=== PATIENT | female | born 1970 | race American Indian/Alaskan Native ===

== ENCOUNTER 2019-01-30 12:44 | Inpatient (IN) | payer MEDICAID ==
[2019-01-30 13:04] VITALS: BMI 24.2
[2019-01-30 14:09] LABS: BASO # 0.04 K/mm3 (0.0-2.0); BASO % 0.6 % (0.0-3.0); EOS # 0.1 (0.0-0.7); HEMOGLOBIN 13.6 g/dL (12.0-16.0); LYMPH # 1.8 (1.2-3.4); LYMPH % 26.2 % (22.0-35.0); MEAN CORPUSCULAR HEMOGLOBIN 26.5 pg (25.0-35.0); MEAN CORPUSCULAR HGB CONC 33.1 g/dl (31.0-37.0); MEAN PLATELET VOLUME 10.5 fl (7.0-11.0); MONO # 0.4 (0.1-0.6); MONO % 6.6 % (1.0-6.0); RBC 5.14 10^6/uL (3.5-6.1); RED CELL DISTRIBUTION WIDTH 15.5 % (11.5-14.5); WHITE BLOOD COUNT 6.7 10^3/uL (4.5-11.0)
[2019-01-30 14:15] LABS: URINE BILIRUBIN NEGATIVE (NEGATIVE); URINE BLOOD NEGATIVE (NEGATIVE); URINE GLUCOSE (UA) NEGATIVE (NEGATIVE); URINE LEUKOCYTE ESTERASE TRACE Leu/uL (NEGATIVE); URINE PROTEIN NEGATIVE mg/dL (<30 mg/dL); URINE UROBILINOGEN 0.2 E.U./dL (<1 E.U./dL)
[2019-01-30 14:18] LABS: ALB/GLOB RATIO 1.3 (1.1-1.8); ALBUMIN 4.5 g/dL (3.0-4.8); ALT/SGPT 26 U/L (7-56); AST/SGOT 28 U/L (14-36); BLOOD UREA NITROGEN 7 mg/dL (7-21); CALCIUM 9.6 mg/dL (8.4-10.5); GFR NON-AFRICAN AMERICAN > 60
[2019-01-30 14:19] LABS: ACETAMINOPHEN < 10.0 ug/ml (10.0-20.0); SALICYLATE < 1 mg/dL (2.0-20.0)
[2019-01-30 14:28] LABS: URINE APPEARANCE CLEAR (CLEAR); URINE COLOR YELLOW (YELLOW)
[2019-01-30 14:31] LABS: OPIATES, UR NEGATIVE (NEGATIVE)
--- NOTE | 2019-01-30 14:32 | ED PDOC ---
Arrival/HPI - General Historian: Patient - History of Present Illness Narrative History of Present Illness (Text): 01/30/19 14:34 48yr old female with hx of depression and drug use presents today with worsening depression. pt states she used cocaine yesterday. denies fever/chills. no cp or sob. pt states she hasnt eaten since yesterday and is having pain in the stomach because she is hungry. pt denies alcohol use. no headaches/ dizziness or weakness. no trauma or injury. no n/v/d/c. no urinary symptoms. pt states she is supposed to be on medications for depression but hasnt followed up with her doctor. pt states she is extremely depressed today because she started using d rugs again. <Lakisha Mccoy - Last Filed: 01/30/19 15:51> <Jose Williamson - Last Filed: 01/30/19 16:28> - General Chief Complaint: Psychiatric Evaluation Time Seen by Provider: 01/30/19 12:50 Past Medical History - Provider Review Nursing Documentation Reviewed: Yes - Travel History Have you recently traveled outside [place] w/in the past 3 mons?: No - Infectious Disease Hx of Infectious Diseases: None - Psychiatric Hx Depression: Yes Hx Substance Use: Yes Other/Comment: substance abuse - Anesthesia Hx Anesthesia: No <Lakisha Mccoy - Last Filed: 01/30/19 15:51> Family/Social History - Physician Review Nursing Documentation Reviewed: Yes Family/Social History: Unknown Family HX Smoking Status: Light Smoker < 10 Cigarettes Daily Hx Alcohol Use: Yes Frequency of alcohol use: Socially Hx Substance Use: Yes Substance used: heroine, cocaine, was on methadone <Lakisha Mccoy - Last Filed: 01/30/19 15:51> Allergies/Home Meds <Lakisha Mccoy - Last Filed: 01/30/19 15:51> <Jose Williamson - Last Filed: 01/30/19 16:28> Allergies/Adverse Reactions: Allergies No Known Allergies Allergy (Verified 01/30/19 13:04) Home Medications: Home Meds Medication Instructions Recorded Confirmed No Known Home Med 01/30/19 01/30/19 Review of Systems - Review of Systems Constitutional: absent: Fatigue, Fevers ENT: absent: Sore Throat, Sinus Congestion Respiratory: absent: SOB, Cough Cardiovascular: absent: Chest Pain, Palpitations Gastrointestinal: Abdominal Pain. absent: Constipation, Diarrhea, Nausea, Vomiting Genitourinary Female: absent: Dysuria, Frequency, Hematuria Musculoskeletal: absent: Arthralgias, Back Pain, Neck Pain Skin: absent: Rash, Pruritis Neurological: absent: Headache, Dizziness Psychiatric: Depression. absent: Anxiety, Suicidal Ideation <Lakisha Mccoy T - Last Filed: 01/30/19 15:51> Physical Exam Vital Signs Reviewed: Yes Vital Signs Temp Pulse Resp BP Pulse Ox 01/30/19 14:03 97 H 18 118/78 100 01/30/19 13:09 98.5 F 110 H 18 121/85 100 Temperature: Afebrile Blood Pressure: Normal Pulse: Tachycardic Respiratory Rate: Normal Appearance: Positive for: Well-Appearing, Non-Toxic, Comfortable Pain Distress: None Mental Status: Positive for: Alert and Oriented X 3 - Systems Exam Head: Present: Atraumatic Mouth: Present: Moist Mucous Membranes Neck: Present: Normal Range of Motion Respiratory/Chest: Present: Clear to Auscultation, Good Air Exchange. No: Respiratory Distress, Accessory Muscle Use Cardiovascular: Present: Regular Rate and Rhythm, Normal S1, S2. No: Murmurs Abdomen: No: Tenderness, Distention, Peritoneal Signs, Rebound, Guarding Back: Present: Normal Inspection Upper Extremity: Present: Normal ROM Lower Extremity: Present: Normal ROM Neurological: Present: GCS=15, Speech Normal Skin: Present: Warm, Dry, Normal Color. No: Rashes Psychiatric: Present: Alert, Oriented x 3 <Lakisha Mccoy T - Last Filed: 01/30/19 15:51> Vital Signs Temp Pulse Resp BP Pulse Ox 01/30/19 15:52 98.2 F 86 18 116/71 100 01/30/19 14:03 97 H 18 118/78 100 01/30/19 13:09 98.5 F 110 H 18 121/85 100 <Jose Williamson - Last Filed: 01/30/19 16:28> Medical Decision Making ED Course and Treatment: 01/30/19 14:36 Patient is nontoxic well-appearing in no distress vital signs are stable. CBC WNL CMP WNL lipase; wnl Tylenol WNL Salicylate WNL Alcohol level WNL Urine drug screen + cocaine, + marijuana UA; trace leukocytes cxr: wnl ekg: Sinus tachycardia at 121 bpm, no st elevations pt is medically cleared for PES evaluation Patient was seen and evaluated by PES screener: sienna pt reassessment; vitals stable. pt signed voluntarily for psychiatric admission Impression; depression Admit to behavioral health floor - Lab Interpretations Lab Results: Total Bilirubin 0.7 mg/dL (0.2-1.3) 01/30/19 13:05 AST 28 U/L (14-36) 01/30/19 13:05 ALT 26 U/L (7-56) 01/30/19 13:05 Alkaline Phosphatase 76 U/L (38-126) 01/30/19 13:05 Total Protein 8.0 g/dL (5.8-8.3) 01/30/19 13:05 Albumin 4.5 g/dL (3.0-4.8) 01/30/19 13:05 Globulin 3.5 gm/dL 01/30/19 13:05 Albumin/Globulin Ratio 1.3 (1.1-1.8) 01/30/19 13:05 <Lakisha Mccoy T - Last Filed: 01/30/19 15:51> - Lab Interpretations Lab Results: Total Bilirubin 0.7 mg/dL (0.2-1.3) 01/30/19 13:05 AST 28 U/L (14-36) 01/30/19 13:05 ALT 26 U/L (7-56) 01/30/19 13:05 Alkaline Phosphatase 76 U/L (38-126) 01/30/19 13:05 Total Protein 8.0 g/dL (5.8-8.3) 01/30/19 13:05 Albumin 4.5 g/dL (3.0-4.8) 01/30/19 13:05 Globulin 3.5 gm/dL 01/30/19 13:05 Albumin/Globulin Ratio 1.3 (1.1-1.8) 01/30/19 13:05 Lipase 129 U/L (23-300) 01/30/19 13:05 Urine Color Yellow (YELLOW) 01/30/19 14:05 Urine Appearance Clear (CLEAR) 01/30/19 14:05 Urine pH 7.0 (4.7-8.0) 01/30/19 14:05 Ur Specific [place] 1.020 (1.005-1.035) 01/30/19 14:05 Urine Protein Negative mg/dL (<30 mg/dL) 01/30/19 14:05 Urine Glucose (UA) Negative mg/dL (NEGATIVE) 01/30/19 14:05 Urine Ketones Negative mg/dL (NEGATIVE) 01/30/19 14:05 Urine Blood Negative (NEGATIVE) 01/30/19 14:05 Urine Nitrate Negative (NEGATIVE) 01/30/19 14:05 Urine Bilirubin Negative (NEGATIVE) 01/30/19 14:05 Urine Urobilinogen 0.2 E.U./dL (<1 E.U./dL) 01/30/19 14:05 Ur Leukocyte Esterase Trace [place]/uL (NEGATIVE) H 01/30/19 14:05 Urine RBC 0 - 2 /hpf (0-2) 01/30/19 14:05 Urine WBC 2 - 5 /hpf (0-6) 01/30/19 14:05 Ur Epithelial Cells 6 - 8 /hpf (0-5) H 01/30/19 14:05 Amorphous Sediment Few /hpf (NONE) 01/30/19 14:05 Urine Bacteria Small /hpf (NONE) 01/30/19 14:05 - RAD Interpretation Radiology Orders: 01/30/19 14:34 CHEST PORTABLE [RAD] Stat - Medication Orders Current Medication Orders: Discontinued Medications Cephalexin Monohydrate (Keflex) 500 mg PO STAT STA; Protocol Stop: 01/30/19 15:54 Lorazepam (Ativan) 1 mg PO ONCE ONE; Protocol Stop: 01/30/19 15:15 Last Admin: 01/30/19 15:36 Dose: 1 mg <Jose Williamson - Last Filed: 01/30/19 16:28> - PA / SENIOR ANALYST PROGRAMMER / Resident Statement / has reviewed & agrees with the documentation as recorded. <Jose Williamson - Last Filed: 01/30/19 16:28> Disposition/Present on Arrival - Present on Arrival Any Indicators Present on Arrival: No History of DVT/PE: No History of Uncontrolled Diabetes: No Urinary Catheter: No History of Decub. Ulcer: No History Surgical Site Infection Following: None - Disposition Have Diagnosis and Disposition been Completed?: Yes Disposition Time: 15:52 Patient Plan: Admission <Lakisha Mccoy - Last Filed: 01/30/19 15:51> <Jose Williamson - Last Filed: 01/30/19 16:28> - Disposition Diagnosis: Depression, Drug use Disposition: HOSPITALIZED Condition: FAIR
[2019-01-30 14:34] LABS: BARBITURATES, UR NEGATIVE (NEGATIVE); BENZODIAZEPINES, UR NEGATIVE (NEGATIVE); PHENCYCLIDINE, UR NEGATIVE (NEGATIVE); URINE AMORPHOUS SEDIMENT FEW /hpf; URINE BACTERIA SMALL /hpf; URINE RBC 0 - 2 /hpf (0-2)
--- NOTE | 2019-01-30 14:53 | RAD ---
Date of service: 01/30/2019 HISTORY: Pes eval COMPARISON: No prior. FINDINGS: LUNGS: No active pulmonary disease. PLEURA: No significant pleural effusion identified, no pneumothorax apparent. CARDIOVASCULAR: No aortic atherosclerotic calcification present. Normal cardiac size. No pulmonary vascular congestion. OSSEOUS STRUCTURES: No significant abnormalities. VISUALIZED UPPER ABDOMEN: Normal. OTHER FINDINGS: None. IMPRESSION: No active disease.
--- NOTE | 2019-01-30 15:25 | CARD ---
APPROVED REPORT Date of service: 01/30/2019 EKG Measurement Heart [id number] <Conclusion> Sinus tachycardia Otherwise normal ECG
[2019-01-30] MEDS ORDERED: Alum-Mag Hydrox-Simethicone Susp (30 mL) PO PRN (17:54)
[2019-01-30] MEDS ORDERED: Magnesium Hydroxide Susp 30 ml UD PO PRN (17:54)
--- NOTE | 2019-01-30 18:22 | PCM.BM ---
<Socorro Temple - Last Filed: 01/30/19 18:19> Treatment Plan Problems - Problems identified on initial assessmt INEFFECTIVE INDV COPING Date Initiated: 01/30/19 Time Initiated: 18:00 Assessment reference: NA Status: Active Priority: 1 HOPELESS/HELPLESS Date Initiated: 01/30/19 Time Initiated: 18:00 Assessment reference: NA Priority: 2 ALTERED SLEEP PATTERN Date Initiated: 01/30/19 Time Initiated: 18:00 Assessment reference: NA Status: Active Priority: 3 FEELING WORTHLESSNESS Date Initiated: 01/30/19 Time Initiated: 18:00 Assessment reference: NA Status: Active Priority: 4 HIGH RISK :SUICIDE Date Initiated: 01/30/19 Time Initiated: 18:00 Assessment reference: NA Status: Active Priority: 5 Treatment assets and liabiliti Patient Assests: insightful, ADL independent, physically healthy, cognitively intact, strong nancy Patient Liabilities: financial problems, poor support system, substance abuse - Milieu Protocol Maintain good personal hygiene: daily Encourage regular showers, daily Remind patient to perform daily oral care, daily Assist patient to perform ADL's Maintain personal safety: every shift Educate patient to report safety concerns to staff, every shift Monitor environment for contraband/sharps Medication safety: Monitor for expected outcome, potential side effects: every shift, Assess barriers to learning: every shift, Assess readiness for medication education: every shift Discharge/Continuing Care - Education Needs Education Needs: Patient Medication, Patient Diagnosis/Disease Process, Patient Coping Skills, Patient Anger Management skills, Patient Community resources, Patient Activities of Daily Living, Patient Pain, Patient Nutrition, Patient Health Practices/Safety, Patient Personal Hygiene/Grooming, Patient Aftercare Safety Plan - Discharge Discharge Criteria: Tolerates medication w/o severe side effects, Free of Suicidal thoughts, Free of agitation, Normal sleep pattern, Ability to care for self, No longer exhibiting s/s of withdrawal, Reduction of target symptoms Discharge to:: Home <Missy Lora - Last Filed: 01/31/19 13:39> - Diagnosis (1) MDD (major depressive disorder) Status: Acute Interventions: 01/31/19 13:40 Psychoeducation Psychopharmacology/adjustment of medications as needed/ monitoring possible side effects Evaluate pt on daily basis Compliance with medications and follow up appointments Suicide and homicide risk assessment and prevention Relapse prevention Reduction of symptoms Improve functional status Family involvement As outpatient: cognitive behavioral therapy (2) Polysubstance dependence including opioid type drug, episodic abuse Status: Acute Interventions: 01/31/19 13:40 Monitoring withdrawal symptoms Medical detoxification Pharmacotherapy for alcohol/benzos/opioid dependence Maintaining sobriety Relapse prevention Possible rehabilitation Motivational interviewing 12-step programs: AA meetings <Tova Coronel - Last Filed: 02/01/19 16:00> Family Contact Family involvement: Famliy/SO not involved <Maegan Murphy - Last Filed: 02/02/19 15:44>
[2019-01-31 07:05] VITALS: O2SAT 99
[2019-01-31 08:03] LABS: HDL CHOLESTEROL 76 mg/dL (29-60)
[2019-01-31 08:15] LABS: LDL CHOLESTEROL 114 mg/dL (0-129)
[2019-01-31 08:19] LABS: FREE T4 0.82 ng/dL (0.78-2.19)
--- NOTE | 2019-01-31 13:39 | PCM.PSYCH ---
Initial Psychiatric Evaluation - Initial Psychiatric Evaluation Type of Admission: Voluntary Legal Status: Capacity Chief Complaint (in patient's own words): "I was thinking to cut my wrists, then I called 911..." Patient's Reaction to Hospitalization: pt was admitted for evaluation and stabilization of depressive symptoms, suicidal ideation with the plan to cut her wrists, paranoid ideation. History of Present Illness and Precipitating Events: shortly pt is a 48yr old female with self-reported history of depression, no previous psychiatric admissions, one detox admission at [facility] about a year ago, patient called 911 because of worsening of depressive symptoms, possible suicidal ideation with a plan to cut herself with a razor, patient also experienced psychotic symptoms, patient was feeling paranoid that people are monitoring her and talking badly about her. Patient has long history of opioid and stimulant use disorder, currently under care or of methadone clinic, completed detox from methadone, patient requires further evaluation and stabilization and possible medication management. Patient was seen and examined today at the treatment team meeting, patient presented with poor personal hygiene, seems to be careless about her appearance, tearful during the interview, acceptable ADLs. Patient reported that she was using drugs for about 26 years, patient reported that she had 10-year of sobriety since 2008 until recent weight, patient reported that she relapsed on drugs after her mother got sick, patient reported that her mother last July, patient reported that she relapsed on opioids, cocaine, patient reported that she could spend $800 for drugs, most recently patient spent $5000 for past 2 weeks for cocaine, patient reported that she decided to stay sober, patient was substituting opioids with methadone which was tapered down to 10 mg, patient reported that she relapsed on cocaine and later on she was drinking alcohol in order to help herself with withdrawal symptoms, later on patient would start smoking marijuana in order to help herself with alcohol. Patient reported no patient feels more or less, will be but "tired". No physical symptoms of withdrawals, patient's vital signs are within normal limits, patient able to eat. Patient reported that she smokes cigarettes, about 1 pack a day, counseling provided, nicotine patch offered. Patient reported for past 2 weeks was feeling more depressed, hopeless, helpless, guilty, patient reported that she had suicidal ideation with a plan to cut herself with a razor, patient said that she was opening the drawer where she has razors, "I was looking at the razors, I was thinking to cut myself, but I decided to call 911 and look for help." Patient reported that she had difficulty to fall asleep to stay asleep, difficulty to stay focused and concentrate, patient reported that she was not able to function. Patient reported that she was feeling paranoid lately, patient reported that she feels that her neighbors are watching her and talking badly about her. Patient denied history of being abused. Past psychiatric history: Patient reported one suicidal plan at the age of 27 patient reported that she overdose on bleach, patient reported that she was not admitted, patient reported that she was under the influence of alcohol but then and there is not for suicidal attempt was relationship problems with her boyfriend. Pt. attends methadone clinic [facility] in [place] for the past 4 months. 03/18/18 [facility] detox. pt was dx with: polysubstance abuse and dependence\\ Major Depressive d/o -recurrent - severe, w/o psychosis r/o personality d/o r/o bipolar type II pt was prescribed following meds: Escitalopram [Lexapro] 10 mg PO DAILY #30 tab Gabapentin [Neurontin] 300 mg PO TID #90 cap QUEtiapine [SEROquel] 50 mg PO HS #30 tab traZODone [Desyrel] 50 mg PO HS PRN #30 tab h/o indicated that DYFS was involved last time. pt has 18yo, 13yo and 9yo kids, now they are under custody of their father. Medical history: Patient denied any medical history, reported being healthy. Family history: Patient reported that her great uncle had history of being hospitalized into the psychiatric inpatient unit but patient was not sure what she was diagnosed with. Patient denied family history of suicidal attempts. 01/30/19 13:05 01/30/19 13:05 Lab Results 01/31/19 07:30: Triglycerides 94, Cholesterol 244 H, LDL Cholesterol Direct 114, HDL Cholesterol 76 H 01/31/19 07:30: Free T4 0.82, TSH 3rd Generation 0.94 01/30/19 14:05: Urine Opiates Screen Negative, Urine Methadone Screen Negative, Ur Barbiturates Screen Negative, Ur Phencyclidine Scrn Negative, Ur Amphetamines Screen Negative, U Benzodiazepines Scrn Negative, U Oth Cocaine Metabols Positive H, U Cannabinoids Screen Positive H 01/30/19 14:05: Urine Color Yellow, Urine Appearance Clear, Urine pH 7.0, Ur Specific [place] 1.020, Urine Protein Negative, Urine Glucose (UA) Negative, Urine Ketones Negative, Urine Blood Negative, Urine Nitrate Negative, Urine Bilirubin Negative, Urine Urobilinogen 0.2, Ur Leukocyte Esterase Trace H, Urine RBC 0 - 2, Urine WBC 2 - 5, Ur Epithelial Cells 6 - 8 H, Amorphous Sediment Few, Urine Bacteria Small 01/30/19 13:05: Lipase 129 01/30/19 13:05: Alcohol, Quantitative < 10 01/30/19 13:05: Salicylates < 1 L, Acetaminophen < 10.0 L 01/30/19 13:05: Sodium 141, Potassium 3.5 L, Chloride 105, Carbon Dioxide 28, Anion Gap 11, BUN 7, Creatinine 0.9, Est GFR ( Amer) > 60, Est GFR (Non- Af Amer) > 60, Random Glucose 95, Calcium 9.6, Total Bilirubin 0.7, AST 28, ALT 26, Alkaline Phosphatase 76, Total Protein 8.0, Albumin 4.5, Globulin 3.5, Albumin/Globulin Ratio 1.3 01/30/19 13:05: WBC 6.7, RBC 5.14, Hgb 13.6, Hct 41.1, MCV 80.0, MCH 26.5, MCHC 33.1, RDW 15.5 H, Plt Count 354, MPV 10.5, Neut % (Auto) 65.6, Lymph % (Auto) 26.2, [place] % (Auto) 6.6 H, Eos % (Auto) 1.0 L, Baso % (Auto) 0.6, Lymph # (Auto) 1.8, [place] # (Auto) 0.4, Eos # (Auto) 0.1, Baso # (Auto) 0.04, Absolute Neuts (auto) 4.40 Vital Signs Temp Pulse Resp BP Pulse Ox 01/31/19 07:00 98.1 F 112 H 18 110/73 99 01/30/19 21:15 98.3 F 87 16 113/80 01/30/19 18:03 16 01/30/19 17:22 100 01/30/19 17:03 98.1 F 79 18 122/76 100 01/30/19 15:52 98.2 F 86 18 116/71 100 01/30/19 14:03 97 H 18 118/78 100 01/30/19 13:09 98.5 F 110 H 18 121/85 100 The patient failed the outpatient lower level of care: Yes Current Medications: Active Medications Generic Name Dose Route Start Last Admin Trade Name Freq PRN Reason Stop Dose Admin Acetaminophen 650 mg 01/30/19 17:54 Tylenol 325mg Tab PO Q4 PRN Pain, moderate (4-7) Al Hydrox/Mg Hydrox/Simethicone 30 ml 01/30/19 17:54 Maalox Plus 30 Ml PO DAILY PRN Upset Stomach Gabapentin 300 mg 01/30/19 18:00 01/30/19 18:37 Neurontin PO 300 mg TID LOGAN Administration Protocol Hydroxyzine Pamoate 50 mg 01/30/19 17:49 Vistaril PO Q8 PRN Anxiety Protocol Lorazepam 2 mg 01/30/19 17:50 01/30/19 21:10 Ativan PO 2 mg Q6H PRN Administration Anxiety Protocol Lorazepam 2 mg 01/30/19 17:51 Ativan IM Q6H PRN Anxiety Protocol Magnesium Hydroxide 30 ml 01/30/19 17:54 Milk Of Magnesia PO DAILY PRN Constipation Quetiapine Fumarate 50 mg 01/30/19 17:50 Seroquel PO BID PRN HALLUCINATION Protocol Trazodone HCl 50 mg 01/30/19 17:48 Desyrel PO HS PRN Sleep Ziprasidone 20 mg 01/30/19 17:52 Geodon Cap PO Q6H PRN Agitation Protocol Ziprasidone 20 mg 01/30/19 17:53 Geodon Inj IM Q6H PRN Agitation Protocol Present on Admission - Present on Admission Any Indicators Present on Admission: No Review of Systems - Review of Systems Systems not reviewed;Unavailable: Acuity of Condition - Constitutional Constitutional: As Per HPI - EENT Eyes: As Per HPI Ears: As Per HPI Nose/Mouth/Throat: As Per HPI - Breasts Breasts: As Per HPI - Cardiovascular Cardiovascular: As Per HPI - Respiratory Respiratory: As Per HPI - Gastrointestinal Gastrointestinal: As Per HPI - Genitourinary Genitourinary: As Per HPI - Reproductive: Female Reproductive:Female: As Per HPI - Menstruation Menstruation: As Per HPI - Musculoskeletal Musculoskeletal: As Per HPI - Integumentary Integumentary: As Per HPI - Neurological Neurological: As Per HPI - Psychiatric Psychiatric: As Per HPI - Endocrine Endocrine: As Per HPI - Hematologic/Lymphatic Hematologic: As Per HPI Past Patient History - Past Psychiatric History Previous Treatment History: Inpatient Prior Professional Help: see HPI Prior Psychiatric Treatment: see HPI At what hospital: see HPI Duration: see HPI Nature of Treatment: see HPI Explanation of prior treatment: see HPI - PSYCHIATRIC Hx Depression: Yes Hx Substance Use: Yes (cocaine) - Infectious Disease Hx of Infectious Diseases: None - CARDIAC Hx Cardiac Disorders: No Hx Hypertension: No - PULMONARY Hx Respiratory Disorders: No Hx Tuberculosis: No - NEUROLOGICAL Hx Neurological Disorder: No HX Cerebrovascular Accident: No Hx Seizures: No - HEENT Hx HEENT Problems: No - RENAL Hx Chronic Kidney Disease: No - ENDOCRINE/METABOLIC Hx Endocrine Disorders: No - HEMATOLOGICAL/ONCOLOGICAL Hx Blood Disorders: No Hx Cancer: No Hx Human Immunodeficiency Virus (HIV): No - INTEGUMENTARY Hx Dermatological Problems: No - MUSCULOSKELETAL/RHEUMATOLOGICAL Hx Musculoskeletal Disorders: No - GASTROINTESTINAL Hx Gastrointestinal Disorders: No - GENITOURINARY/GYNECOLOGICAL Hx Genitourinary Disorders: No Hx Sexually Transmitted Disorders: No - SURGICAL HISTORY Hx Surgeries: No - ANESTHESIA Hx Anesthesia: No - Medical/Surgical History Reviewed & confirmed: by az Meds Allergies/Adverse Reactions: Allergies Allergy/AdvReac Type Severity Reaction Status Date / Time No Known Allergies Allergy Verified 01/30/19 13:04 Mental Status Examination - Personal Presentation Personal Presentation: Looks stated age - Affect Affect: Flat - Motor Activity Motor Activity: Calm - Reliability in Providing Information Reliability in Providing Information: Fair - Speech Speech: Organized - Mood Mood: Depressed, Anxious - Formal Thought Process Formal Thought Process: Paranoia - Hallucinations/Delusions Delusions: Persecution - Obsessions/Compulsions Obsessions: None Compulsions: None - Cognitive Functions Orientation: Person, Place, Situation, Time Sensorium: Alert Attention/Concentration: Easily distracted Abstract Thinking: [place] Estimate of Intelligence: Average Judgement: Intact, as evidence by: Insight regarding need for hospitalization - Risk Risk: Self-mutilation, Diminished functioning - Strength & Assets Inventory Strength & Assets Inventory: Intelligence, Spiritual affiliations, Life experience, Cooperative - Limitations Limitations: Other (substance abuse, poor social support) Psychiatric Physical Exam - Physical Exam Reviewed and confirmed: Emergency Department Physical Exam Results - Vital Signs Recent Vital Signs: Last Vital Signs Temp 98.1 F 01/31/19 07:00 Pulse 112 H 01/31/19 07:00 Resp 18 01/31/19 07:00 BP 110/73 01/31/19 07:00 Pulse Ox 99 01/31/19 07:00 - Labs Result Diagrams: 01/30/19 13:05 01/30/19 13:05 Labs: Laboratory Results - last 24 hr 01/30/19 01/30/19 01/30/19 13:05 13:05 13:05 WBC 6.7 RBC 5.14 Hgb 13.6 Hct 41.1 MCV 80.0 MCH 26.5 MCHC 33.1 RDW 15.5 H Plt Count 354 MPV 10.5 Neut % (Auto) 65.6 Lymph % (Auto) 26.2 [place] % (Auto) 6.6 H Eos % (Auto) 1.0 L Baso % (Auto) 0.6 Lymph # (Auto) 1.8 [place] # (Auto) 0.4 Eos # (Auto) 0.1 Baso # (Auto) 0.04 Absolute Neuts (auto) 4.40 Sodium 141 Potassium 3.5 L Chloride 105 Carbon Dioxide 28 Anion Gap 11 BUN 7 Creatinine 0.9 Est GFR ( Amer) > 60 Est GFR (Non-Af Amer) > 60 Random Glucose 95 Calcium 9.6 Total Bilirubin 0.7 AST 28 ALT 26 Alkaline Phosphatase 76 Total Protein 8.0 Albumin 4.5 Globulin 3.5 Albumin/Globulin Ratio 1.3 Triglycerides Cholesterol LDL Cholesterol Direct HDL Cholesterol Lipase Free T4 TSH 3rd Generation Urine Color Urine Appearance Urine pH Ur Specific [place] Urine Protein Urine Glucose (UA) Urine Ketones Urine Blood Urine Nitrate Urine Bilirubin Urine Urobilinogen Ur Leukocyte Esterase Urine RBC Urine WBC Ur Epithelial Cells Amorphous Sediment Urine Bacteria Salicylates < 1 L Urine Opiates Screen Urine Methadone Screen Acetaminophen < 10.0 L Ur Barbiturates Screen Ur Phencyclidine Scrn Ur Amphetamines Screen U Benzodiazepines Scrn U Oth Cocaine Metabols U Cannabinoids Screen Alcohol, Quantitative 01/30/19 01/30/19 01/30/19 13:05 13:05 14:05 WBC RBC Hgb Hct MCV MCH MCHC RDW Plt Count MPV Neut % (Auto) Lymph % (Auto) [place] % (Auto) Eos % (Auto) Baso % (Auto) Lymph # (Auto) [place] # (Auto) Eos # (Auto) Baso # (Auto) Absolute Neuts (auto) Sodium Potassium Chloride Carbon Dioxide Anion Gap BUN Creatinine Est GFR ( Amer) Est GFR (Non-Af Amer) Random Glucose Calcium Total Bilirubin AST ALT Alkaline Phosphatase Total Protein Albumin Globulin Albumin/Globulin Ratio Triglycerides Cholesterol LDL Cholesterol Direct HDL Cholesterol Lipase 129 Free T4 TSH 3rd Generation Urine Color Yellow Urine Appearance Clear Urine pH 7.0 Ur Specific [place] 1.020 Urine Protein Negative Urine Glucose (UA) Negative Urine Ketones Negative Urine Blood Negative Urine Nitrate Negative Urine Bilirubin Negative Urine Urobilinogen 0.2 Ur Leukocyte Esterase Trace H Urine RBC 0 - 2 Urine WBC 2 - 5 Ur Epithelial Cells 6 - 8 H Amorphous Sediment Few Urine Bacteria Small Salicylates Urine Opiates Screen Urine Methadone Screen Acetaminophen Ur Barbiturates Screen Ur Phencyclidine Scrn Ur Amphetamines Screen U Benzodiazepines Scrn U Oth Cocaine Metabols U Cannabinoids Screen Alcohol, Quantitative < 10 01/30/19 01/31/19 01/31/19 14:05 07:30 07:30 WBC RBC Hgb Hct MCV MCH MCHC RDW Plt Count MPV Neut % (Auto) Lymph % (Auto) [place] % (Auto) Eos % (Auto) Baso % (Auto) Lymph # (Auto) [place] # (Auto) Eos # (Auto) Baso # (Auto) Absolute Neuts (auto) Sodium Potassium Chloride Carbon Dioxide Anion Gap BUN Creatinine Est GFR ( Amer) Est GFR (Non-Af Amer) Random Glucose Calcium Total Bilirubin AST ALT Alkaline Phosphatase Total Protein Albumin Globulin Albumin/Globulin Ratio Triglycerides 94 Cholesterol 244 H LDL Cholesterol Direct 114 HDL Cholesterol 76 H Lipase Free T4 0.82 TSH 3rd Generation 0.94 Urine Color Urine Appearance Urine pH Ur Specific [place] Urine Protein Urine Glucose (UA) Urine Ketones Urine Blood Urine Nitrate Urine Bilirubin Urine Urobilinogen Ur Leukocyte Esterase Urine RBC Urine WBC Ur Epithelial Cells Amorphous Sediment Urine Bacteria Salicylates Urine Opiates Screen Negative Urine Methadone Screen Negative Acetaminophen Ur Barbiturates Screen Negative Ur Phencyclidine Scrn Negative Ur Amphetamines Screen Negative U Benzodiazepines Scrn Negative U Oth Cocaine Metabols Positive H U Cannabinoids Screen Positive H Alcohol, Quantitative - EKG Data EKG Interpreted by: ER Physician DSM Plan - DSM 5 DSM 5 Diagnosis: MDD, severe with psychosis r/o substance induced mood disorder r/o substance induced psychosis polysubstance abuse cocaine dependence - Recommended/Plan of Treatment Treatment Recommendations and Plan of Treatment: Milieu/structure/supportive therapy SW consultation for discharge plan and social issues Med management: seroquel for psychosis/mood stabilization wellbutrin for depression neurontin for mood/cravings Trazodone as needed for insomnia MVI Family involvement Follow up on labs Will monitor closely Pt was educated about risk/benefits and alternatives of medications, coping strategies (safety plan, suicide prevention), relapse prevention, importance of follow up with psychiatrist and therapist, stay away from drugs/alcohol/smoking Projected ELOS: 7days Prognosis: fair Discharge Plan and Discharge Criteria: Pt will be not depressed or manic, will be more hopeful, will be not psychotic or anxious, will be tolerating medications well, will not have major side effe cts, will be able to function, will not pose threat to self or others. - Tobacco Cessation Tobacco Use Status for the last 30 days: Heavy User(>=5 cigs &/or cigars/pipes daily) Tobacco Use Treatment Practical Counseling Provided: Yes Tobacco Use Treatment FDA-Approved Cessation Medication Provided: Yes Type of Medication Provided: Nicoderm CQ - Alcohol or Substance Abuse Does the patient have an Alcohol or Substance Abuse Disorder: Yes Initial Psych Certification - Initial Certification I certify that the inpatient psychiatric facility admission was medically necessary for either: Treatment which could reasonbly be expected to improve pt's condition I estimate of hospitalization is necessary for proper treatment of the patient: 7 Unit of Time: Days My plans for post-hospital care for this patient are: dual dx program possible rehab, but pt expressed no interest
--- NOTE | 2019-01-31 19:08 | CON ---
DATE: 01/31/2019 HISTORY OF PRESENT ILLNESS: I was called to the psychiatric floor. I saw her in her bed. She is a 48-year-old female who comes with a history of depression, also drug abuse and states that depression was worse. She was doing cocaine and marijuana. She has not been eating well. She has stomach upset. No alcohol, she denies it. No headache. No dizziness. No weakness. No trauma. No nausea, vomiting, constipation, or diarrhea. Does not see a doctor on a regular basis as an outpatient and she feels depressed. She started using drugs again. She has depression, substance abuse. FAMILY HISTORY: Unknown family history. SOCIAL HISTORY: Still smokes cigarettes. Still uses alcohol. Still does cocaine, heroin, methadone, and marijuana. ALLERGIES: NO KNOWN DRUG ALLERGIES. MEDICATIONS: Does not take any medications that she know of. REVIEW OF SYSTEMS: No acute vision or hearing changes. No sore throat. No chest pain. No palpitations. No shortness of breath or cough. No abdominal pain, nausea, vomiting, constipation, or diarrhea. No problems urinating. No leg pain. Skin that she know is intact, but she is depressed. PHYSICAL EXAMINATION: GENERAL: She is comfortable at this time, well-appearing, nontoxic, smiling at me, alert and oriented x3. VITAL SIGNS: She has a 98.5 temp, 110 pulse, 18 respiratory rate, 121/85 blood pressure, and 100% O2 sat on room air. HEENT: Head is atraumatic and normocephalic. Extraocular muscles are intact. Throat is moist. NECK: Supple. No JVD. Thyroid is midline. HEART: Regular rate. Normal S1 and S2. LUNGS: Decreased breath sounds, poor inspiration, but clear to auscultation. No wheezes, rhonchi, or rales. ABDOMEN: Soft and nontender. Positive bowel sounds. No guarding. No rebound. No CVA tenderness. EXTREMITIES: No edema. GCS is 15. Cranial nerves II through XII grossly intact. SKIN: Likely I can tell, no rashes or ulcers. NEUROLOGIC: Alert and oriented x3. Comfortable at this time. I think she slept well last night. LABORATORY DATA: She had a bunch of tests done. She has 141 sodium, potassium 3.5, this was yesterday; I told her to get a banana for breakfast this morning, I will repeat the potassium tomorrow. BUN 7, creatinine 0.9, GFR is greater than 60, sugar is 95, calcium is 9.6, and total bili is 0.7. AST is 28, ALT is 26, and alkaline phosphatase is 76. Total protein , albumin is 4.5, globulin 3.5, triglycerides 94, cholesterol 244, a bit elevated, she does not follow any particular diet that she tells me. Lipase is 129. TSH is 0.94. Urine was trace. Toxicology was positive for cocaine and marijuana. Chest x-ray, no active disease. ASSESSMENT AND PLAN: We will check her labs tomorrow. We will check her potassium. We will put her on a low cholesterol diet and encourage her not to do drugs anymore, hopefully she will improve with psychiatric care. Thank you for letting me to participate in the care. Juan Del Valle DO MTDD
[2019-02-01 07:12] LABS: HEMOGLOBIN 13.1 g/dL (12.0-16.0); MEAN CELL VOLUME 80.2 fl (80.0-105.0); MEAN CORPUSCULAR HEMOGLOBIN 25.7 pg (25.0-35.0); MEAN CORPUSCULAR HGB CONC 32.1 g/dl (31.0-37.0); MEAN PLATELET VOLUME 9.7 fl (7.0-11.0); RBC 5.09 10^6/uL (3.5-6.1); RED CELL DISTRIBUTION WIDTH 15.5 % (11.5-14.5); WHITE BLOOD COUNT 7.5 10^3/uL (4.5-11.0)
[2019-02-01 07:33] LABS: ALB/GLOB RATIO 1.3 (1.1-1.8); ALT/SGPT 15 U/L (7-56); AST/SGOT 23 U/L (14-36); BLOOD UREA NITROGEN 21 mg/dL (7-21); CALCIUM 9.3 mg/dL (8.4-10.5); GFR NON-AFRICAN AMERICAN 60
[2019-02-01 10:25] VITALS: TEMP 98.2
--- NOTE | 2019-02-01 12:29 | PN ---
DATE: 02/01/2019 SUBJECTIVE: She was eating her breakfast very well. I just went to her room. She was feeling much better. She was more appropriate. She was better mentally, good spirits overall. She was here for high cholesterol, marijuana use, cocaine use, and low potassium. Overall, she is doing better. She is in good spirits. She is on Ativan, Desyrel, Geodon, Maalox, milk of magnesia, Neurontin, Nicoderm, Seroquel, Tylenol, Vistaril, and Wellbutrin. PHYSICAL EXAMINATION: VITAL SIGNS: She has a 98.2 temperature, 108 pulse, 117/81 blood pressure, 18 respiratory rate, and 99% O2 sat on room air. HEAD: Atraumatic, normocephalic. HEART: Regular rate. LUNGS: Clear to auscultation. ABDOMEN: Soft. EXTREMITIES: No edema. LABORATORY DATA: She has a 7.5 white count, 13.1 hemoglobin, 40.8 hematocrit with 332 platelets. 141 sodium, potassium is 3.8 better, BUN is 21, creatinine 1, GFR is greater than 60, sugar is 108, calcium is 9.3, total bili is 0.5, AST is 23, ALT is 59, alk phos is 60, total protein is 7.1, cholesterol is 244. ASSESSMENT AND PLAN: I changed her diet around to a low-cholesterol diet. I discussed with her the importance of low cholesterol. At this time, I am going to start her on Lipitor or Crestor, I am going to watch her. She has to change her diet. She understands that. We will see how she does. Juan Del Valle DO
--- NOTE | 2019-02-01 13:38 | PCM.PYCHPN ---
Psychiatric Progress Note - Psychiatric Progress Note Patient seen today, length of contact: 30 minutes Patient Chief Complaint: "I feel little better" Problems Identified/Issues Discussed: Suicide/ homicide prevention, past psychiatric h/o, current psychiatric symptoms, medical problems, risk/benefits and alternatives of medications, medications compliance, coping strategies, substance abuse h/o, relapse prevention, importance of follow up with psychiatrist and therapist, discharge plan. Medical Problems: See HPI Diagnostic Results: 02/01/19 06:55 02/01/19 06:55 Lab Results 02/01/19 06:55: Sodium 141, Potassium 3.8, Chloride 105, Carbon Dioxide 30, Anion Gap 10, BUN 21, Creatinine 1.0, Est GFR ( Amer) > 60, Est GFR (Non- Af Amer) 60, Random Glucose 108, Calcium 9.3, Total Bilirubin 0.5, AST 23, ALT 15, Alkaline Phosphatase 60, Total Protein 7.1, Albumin 4.0, Globulin 3.1, Albumin/Globulin Ratio 1.3 02/01/19 06:55: WBC 7.5, RBC 5.09, Hgb 13.1, Hct 40.8, MCV 80.2, MCH 25.7, MCHC 32.1, RDW 15.5 H, Plt Count 332, MPV 9.7 01/31/19 07:30: Triglycerides 94, Cholesterol 244 H, LDL Cholesterol Direct 114, HDL Cholesterol 76 H 01/31/19 07:30: RPR Nonreactive 01/31/19 07:30: Free T4 0.82, TSH 3rd Generation 0.94 01/30/19 14:05: Urine Opiates Screen Negative, Urine Methadone Screen Negative, Ur Barbiturates Screen Negative, Ur Phencyclidine Scrn Negative, Ur Amphetamines Screen Negative, U Benzodiazepines Scrn Negative, U Oth Cocaine Metabols Positive H, U Cannabinoids Screen Positive H 01/30/19 14:05: Urine Color Yellow, Urine Appearance Clear, Urine pH 7.0, Ur Specific [place] 1.020, Urine Protein Negative, Urine Glucose (UA) Negative, Urine Ketones Negative, Urine Blood Negative, Urine Nitrate Negative, Urine Bilirubin Negative, Urine Urobilinogen 0.2, Ur Leukocyte Esterase Trace H, Urine RBC 0 - 2, Urine WBC 2 - 5, Ur Epithelial Cells 6 - 8 H, Amorphous Sediment Few, Urine Bacteria Small 01/30/19 13:05: Lipase 129 01/30/19 13:05: Alcohol, Quantitative < 10 01/30/19 13:05: Salicylates < 1 L, Acetaminophen < 10.0 L 01/30/19 13:05: Sodium 141, Potassium 3.5 L, Chloride 105, Carbon Dioxide 28, Anion Gap 11, BUN 7, Creatinine 0.9, Est GFR ( Amer) > 60, Est GFR (Non- Af Amer) > 60, Random Glucose 95, Calcium 9.6, Total Bilirubin 0.7, AST 28, ALT 26, Alkaline Phosphatase 76, Total Protein 8.0, Albumin 4.5, Globulin 3.5, Albumin/Globulin Ratio 1.3 01/30/19 13:05: WBC 6.7, RBC 5.14, Hgb 13.6, Hct 41.1, MCV 80.0, MCH 26.5, MCHC 33.1, RDW 15.5 H, Plt Count 354, MPV 10.5, Neut % (Auto) 65.6, Lymph % (Auto) 26.2, [place] % (Auto) 6.6 H, Eos % (Auto) 1.0 L, Baso % (Auto) 0.6, Lymph # (Auto) 1.8, [place] # (Auto) 0.4, Eos # (Auto) 0.1, Baso # (Auto) 0.04, Absolute Neuts (auto) 4.40 Vital Signs Temp Pulse Resp BP Pulse Ox 02/01/19 07:00 98.2 F 108 H 18 117/81 01/31/19 16:00 132 H 108/65 01/31/19 07:00 98.1 F 112 H 18 110/73 99 01/30/19 21:15 98.3 F 87 16 113/80 01/30/19 18:03 16 01/30/19 17:22 100 01/30/19 17:03 98.1 F 79 18 122/76 100 01/30/19 15:52 98.2 F 86 18 116/71 100 01/30/19 14:03 97 H 18 118/78 100 01/30/19 13:09 98.5 F 110 H 18 121/85 100 DSM 5 Symptoms Update: shortly pt is a 48yr old female with self-reported history of depression, no previous psychiatric admissions, one detox admission at [facility] about a year ago, patient called 911 because of worsening of depressive symptoms, possible suicidal ideation with a plan to cut herself with a razor, patient also experienced psychotic symptoms, patient was feeling paranoid that people are monitoring her and talking badly about her. Patient has long history of opioid and stimulant use disorder, currently under care or of methadone clinic, completed detox from methadone, patient requires further evaluation and stabilization and possible medication management. Patient was seen and examined today at the treatment team meeting, patient presented with improvement of all of her personal hygiene, seems to be less depressed. Patient reported that she had difficulty to fall asleep and to stay asleep, overall patient reported that her withdrawal symptoms are "manageable", patient reported that she still has transient feeling of hopelessness/helplessness, de pression. Patient denied any thoughts of killing herself or others, patient reported current medications making her feel "little better." Patient reported that she does not hear voices today last time was overnight. So far patient tolerates medications well, no side effects observed or reported, aims 0, no EPS. DSM 5 Diagnosis: MDD, severe with psychosis r/o substance induced mood disorder r/o substance induced psychosis polysubstance abuse cocaine dependence Medication Change: Yes (Seroquel) Medical Record Reviewed: Yes Consults ordered or reviewed: Patient was seen by medical team in the emergency room, patient does not have major medical issues. Mental Status Examination - Cognitive Function Orientation: Person, Place, Situation, Time Memory: Intact Attention: Poor Concentration: Poor Association: WNL Fund of Knowledge: WNL - Mood Mood: Depressed, Anxious - Affect Affect: Flat - Formal Thought Process Formal Thought Process: Paranoia ("I feel little better") - Suicidal Ideation Suicidal Ideation: No - Homicidal Ideation Homicidal Ideation: No Goal/Treatment Plan - Goal/Treatment Plan Need for Continued Stay: Remain at risks for inpatient hospitalization, Severe depression anxiety, Discharge may exacerbated symptoms, Severe functional impairment Progress Toward Problem(s) and Goals/Treatment Plan: Milieu/structure/supportive therapy SW consultation for discharge plan and social issues Med management: seroquel 50 mg twice a day for psychosis/mood stabilization wellbutrin 75 mg twice a day for depression neurontin 300 mg 3 times a day for mood/cravings Trazodone 10 mg at the nighttime as needed for insomnia MVI Family involvement Follow up on labs Will monitor closely Pt was educated about risk/benefits and alternatives of medications, coping strategies (safety plan, suicide prevention), relapse prevention, importance of follow up with psychiatrist and therapist, stay away from drugs/alcohol/smoking Estimated Date of D/C: 02/06/19
[2019-02-02 08:30] LABS: ALB/GLOB RATIO 1.3 (1.1-1.8); ALBUMIN 4.2 g/dL (3.0-4.8); ALT/SGPT 12 U/L (7-56); AST/SGOT 26 U/L (14-36); BLOOD UREA NITROGEN 17 mg/dL (7-21); CALCIUM 9.4 mg/dL (8.4-10.5); GFR NON-AFRICAN AMERICAN 60
[2019-02-02 08:31] LABS: BASO # 0.06 K/mm3 (0.0-2.0); BASO % 0.8 % (0.0-3.0); EOS # 0.1 (0.0-0.7); EOS % 1.9 % (1.5-5.0); HEMOGLOBIN 13.4 g/dL (12.0-16.0); LYMPH # 3.6 (1.2-3.4); LYMPH % 50.2 % (22.0-35.0); MEAN CELL VOLUME 81.2 fl (80.0-105.0); MEAN CORPUSCULAR HEMOGLOBIN 26.3 pg (25.0-35.0); MEAN CORPUSCULAR HGB CONC 32.4 g/dl (31.0-37.0); MEAN PLATELET VOLUME 9.9 fl (7.0-11.0); MONO # 0.5 (0.1-0.6); MONO % 6.8 % (1.0-6.0); RBC 5.1 10^6/uL (3.5-6.1); RED CELL DISTRIBUTION WIDTH 15.8 % (11.5-14.5); WHITE BLOOD COUNT 7.3 10^3/uL (4.5-11.0)
[2019-02-02 08:42] LABS: TROPONIN I < 0.01 ng/mL
--- NOTE | 2019-02-02 12:27 | PN ---
DATE: 02/02/2019 SUBJECTIVE: She is resting in bed, I woke her up. She tells me that last night, her heart rate was very fast, it is actually very fast this morning. Looking back over the vital signs, that was as high as 132, it is down to 100 right now. She is not sure why this is happening at this time. She was using cocaine and marijuana, but over 48 hours. She is little bit nervous and anxious. PHYSICAL EXAMINATION: GENERAL: She does not have any chest pain or shortness of breath, just feels like palpitation she tells me. VITAL SIGNS: She has a 98.2 temperature, 102 pulse, at this time 125/74 blood pressure, 20 respiratory rate, and 99% O2 sat on room air. HEENT: Head is atraumatic and normocephalic. HEART: Tachy, but regular. LUNGS: Decreased breath sounds, but clear to auscultation. ABDOMEN: Soft. EXTREMITIES: No edema. LABORATORY DATA: Labs yesterday with 7.5 white count, 13.1 hemoglobin, 332 platelets. Sodium 141, potassium 3.4, BUN 21, creatinine 1, GFR is greater than 60, sugar is 108, calcium is 9.3, total bili is 0.5. AST is 23, ALT is 59, alk phos 60, total protein 7.1. Her cholesterol was as high as 244, TSH is 0.94. Urine was clean. Tox show the cocaine and marijuana and RPR was nonreactive. Doing some labs this morning with a troponin, doing an EKG, consulting Cardiology. I believe this is just . I might be adding a metoprolol soon if the heart rate bounces back up again. Her EKG on admission was also little tachycardic that came down, was sinus tachycardic, then after the initial elevation, it came down to the 80s and 70s, now it bumped up again to 132, now it is 100. We will evaluate the heart rate, palpitations, EKG, troponins and Cardiology evaluation. Juan Del Valle DO SONI
--- NOTE | 2019-02-02 15:59 | CARD ---
APPROVED REPORT Date of service: 02/02/2019 EXAM: Two-dimensional and M-mode echocardiogram with Doppler and color Doppler. INDICATION Palpitations 2D DIMENSIONS Left Atrium (2D)3.4 (1.6-4.0cm)IVSd1.0 (0.7-1.1cm) LVDd3.9 (3.9-5.9cm)PWd1.3 (0.7-1.1cm) LVDs3.1 (2.5-4.0cm)FS (%) 18.2 % LVEF (%)40.0 (>50%) M-Mode DIMENSIONS Aortic Root3.30 (2.2-3.7cm)Aortic Cusp Exc.1.90 (1.5-2.0cm) Aortic Valve AoV Peak Tmajuguo529.0cm/[place] GR.6mmHg Mitral Valve E/A ratio0.0 TDI E/Lateral E'0.0E/Medial E'0.0 Pulmonary Valve PV Peak Khurtvpg88.6cm/sPV Peak Grad.2mmHg LEFT VENTRICLE The left ventricle is normal size. There is normal left ventricular wall thickness. The systolic function is mildly to moderately impaired. Regional wall motion abnormalities noted. Transmitral Doppler flow pattern is Grade I-abnormal relaxation pattern. RIGHT VENTRICLE The right ventricle is normal size. There is normal right ventricular wall thickness. The right ventricular systolic function is normal. ATRIA The left atrium size is normal. The right atrium size is normal. AORTIC VALVE The aortic valve is normal in structure. No aortic regurgitation is present. There is no aortic valvular stenosis. MITRAL VALVE The mitral valve is moderately thickened. There is no mitral valve regurgitation noted. There is no mitral valve stenosis. TRICUSPID VALVE There is trace tricuspid regurgitation. PULMONIC VALVE There is trace pulmonic valvular regurgitation. GREAT VESSELS The aortic root is normal in size. The IVC is normal in size and collapses >50% with inspiration. <Conclusion> There is normal left ventricular wall thickness. The systolic function is mildly to moderately impaired. Regional wall motion abnormalities noted. Transmitral Doppler flow pattern is Grade I-abnormal relaxation pattern.
--- NOTE | 2019-02-02 16:23 | PCM.PYCHPN ---
Psychiatric Progress Note - Psychiatric Progress Note Patient seen today, length of contact: 30 minutes Patient Chief Complaint: "I feel anxious.." Problems Identified/Issues Discussed: Suicide/ homicide prevention, past psychiatric h/o, current psychiatric symptoms, medical problems, risk/benefits and alternatives of medications, medications compliance, coping strategies, substance abuse h/o, relapse prevention, importance of follow up with psychiatrist and therapist, discharge plan. Medical Problems: See HPI Diagnostic Results: 02/01/19 06:55 02/01/19 06:55 Lab Results 02/01/19 06:55: Sodium 141, Potassium 3.8, Chloride 105, Carbon Dioxide 30, Anion Gap 10, BUN 21, Creatinine 1.0, Est GFR ( Amer) > 60, Est GFR (Non- Af Amer) 60, Random Glucose 108, Calcium 9.3, Total Bilirubin 0.5, AST 23, ALT 1 5, Alkaline Phosphatase 60, Total Protein 7.1, Albumin 4.0, Globulin 3.1, Albumin/Globulin Ratio 1.3 02/01/19 06:55: WBC 7.5, RBC 5.09, Hgb 13.1, Hct 40.8, MCV 80.2, MCH 25.7, MCHC 32.1, RDW 15.5 H, Plt Count 332, MPV 9.7 01/31/19 07:30: Triglycerides 94, Cholesterol 244 H, LDL Cholesterol Direct 114, HDL Cholesterol 76 H 01/31/19 07:30: RPR Nonreactive 01/31/19 07:30: Free T4 0.82, TSH 3rd Generation 0.94 01/30/19 14:05: Urine Opiates Screen Negative, Urine Methadone Screen Negative, Ur Barbiturates Screen Negative, Ur Phencyclidine Scrn Negative, Ur Amphetamines Screen Negative, U Benzodiazepines Scrn Negative, U Oth Cocaine Metabols Positive H, U Cannabinoids Screen Positive H 01/30/19 14:05: Urine Color Yellow, Urine Appearance Clear, Urine pH 7.0, Ur Specific [place] 1.020, Urine Protein Negative, Urine Glucose (UA) Negative, Urine Ketones Negative, Urine Blood Negative, Urine Nitrate Negative, Urine Bilirubin Negative, Urine Urobilinogen 0.2, Ur Leukocyte Esterase Trace H, Urine RBC 0 - 2, Urine WBC 2 - 5, Ur Epithelial Cells 6 - 8 H, Amorphous Sediment Few, Urine Bacteria Small 01/30/19 13:05: Lipase 129 01/30/19 13:05: Alcohol, Quantitative < 10 01/30/19 13:05: Salicylates < 1 L, Acetaminophen < 10.0 L 01/30/19 13:05: Sodium 141, Potassium 3.5 L, Chloride 105, Carbon Dioxide 28, Anion Gap 11, BUN 7, Creatinine 0.9, Est GFR ( Amer) > 60, Est GFR (Non- Af Amer) > 60, Random Glucose 95, Calcium 9.6, Total Bilirubin 0.7, AST 28, ALT 26, Alkaline Phosphatase 76, Total Protein 8.0, Albumin 4.5, Globulin 3.5, Albumin/Globulin Ratio 1.3 01/30/19 13:05: WBC 6.7, RBC 5.14, Hgb 13.6, Hct 41.1, MCV 80.0, MCH 26.5, MCHC 33.1, RDW 15.5 H, Plt Count 354, MPV 10.5, Neut % (Auto) 65.6, Lymph % (Auto) 26.2, [place] % (Auto) 6.6 H, Eos % (Auto) 1.0 L, Baso % (Auto) 0.6, Lymph # (Auto) 1.8, [place] # (Auto) 0.4, Eos # (Auto) 0.1, Baso # (Auto) 0.04, Absolute Neuts (auto) 4.40 Vital Signs Temp Pulse Resp BP Pulse Ox 02/01/19 07:00 98.2 F 108 H 18 117/81 01/31/19 16:00 132 H 108/65 01/31/19 07:00 98.1 F 112 H 18 110/73 99 01/30/19 21:15 98.3 F 87 16 113/80 01/30/19 18:03 16 01/30/19 17:22 100 01/30/19 17:03 98.1 F 79 18 122/76 100 01/30/19 15:52 98.2 F 86 18 116/71 100 01/30/19 14:03 97 H 18 118/78 100 01/30/19 13:09 98.5 F 110 H 18 121/85 100 DSM 5 Symptoms Update: shortly pt is a 48yr old female with self-reported history of depression, no previous psychiatric admissions, one detox admission at [facility] about a year ago, patient called 911 because of worsening of depressive symptoms, possible suicidal ideation with a plan to cut herself with a razor, patient also experienced psychotic symptoms, patient was feeling paranoid that people are monitoring her and talking badly about her. Patient has long history of opioid and stimulant use disorder, currently under care or of methadone clinic, completed detox from methadone, patient requires further evaluation and stabilization and possible medication management. Patient was seen and examined today in her room, pt was interviewed by child protective services yesterday, pt was feeling anxious, then had tachycardia and required medical consult, as a result Echocardiogram. will f/u on result. Patient reported that she had difficulty to fall asleep and to stay asleep, overall patient reported that her withdrawal symptoms are "better", patient reported that she still has transient feeling of hopelessness/helplessness, depression reported that "I don't feel good at all..". Patient denied any thoughts of killing herself or others, patient reported current medications making her feel "little better." Patient reported that she does not hear voices today last time was overnight. So far patient tolerates medications well, no side effects observed or reported, aims 0, no EPS. DSM 5 Diagnosis: MDD, severe with psychosis r/o substance induced mood disorder r/o substance induced psychosis polysubstance abuse cocaine dependence Medication Change: No (seroquel increased yesterday) Medical Record Reviewed: Yes Consults ordered or reviewed: Patient was seen by medical team in the emergency room, patient does not have major medical issues. Mental Status Examination - Cognitive Function Orientation: Person, Place, Situation, Time Memory: Intact Attention: Poor Concentration: Poor Association: WNL Fund of Knowledge: WNL - Mood Mood: Depressed, Anxious - Affect Affect: Flat - Formal Thought Process Formal Thought Process: Paranoia ("I feel little better") - Suicidal Ideation Suicidal Ideation: No - Homicidal Ideation Homicidal Ideation: No Goal/Treatment Plan - Goal/Treatment Plan Need for Continued Stay: Remain at risks for inpatient hospitalization, Severe depression anxiety, Discharge may exacerbated symptoms, Severe functional impairment Progress Toward Problem(s) and Goals/Treatment Plan: Milieu/structure/supportive therapy SW consultation for discharge plan and social issues Med management: seroquel 50 mg twice a day for psychosis/mood stabilization wellbutrin 75 mg twice a day for depression neurontin 300 mg 3 times a day for mood/cravings Trazodone 10 mg at the nighttime as needed for insomnia MVI Family involvement Follow up on labs Will monitor closely Pt was educated about risk/benefits and alternatives of medications, coping strategies (safety plan, suicide prevention), relapse prevention, importance of follow up with psychiatrist and therapist, stay away from drugs/alcohol/smoking Estimated Date of D/C: 02/06/19
[2019-02-02] MEDS: Hydrocortisone 2.5% Rectal Cream(30 gm) PR SCH (19:31)
--- NOTE | 2019-02-02 19:41 | CON ---
DATE OF CONSULTATION: 02/02/2019 CARDIOLOGY CONSULTATION HISTORY: The patient is a 48-year-old woman with no previous cardiac history, who is in the psychiatry floor being evaluated for suicide and homicide prevention. The patient is a smoker, but no previous cardiac history. She has severe depression. However, she complains of intermittent palpitations on a daily basis. She has never had been evaluated before. She denies diabetes mellitus. SOCIAL HISTORY: She is an active smoker. REVIEW OF SYSTEMS: No angina. No shortness of breath. No edema in the lower extremities. No loss of consciousness. PHYSICAL EXAMINATION: VITAL SIGNS: Blood pressure is 125/74, the heart rate is in the 90s, normal sinus rhythm. NECK: Negative JVD. LUNGS: Without rales. CARDIAC: Heart rate S1, S2. EXTREMITIES: Without edema. LABORATORY DATA: EKG shows normal sinus rhythm with no acute changes. Cholesterol is 244. TFTs are unremarkable. Hemoglobin is 13.4. IMPRESSION: 1. Recurrent palpitations. 2. Nicotine addiction. 3. Hypercholesterolemia. 4. Depression. PLAN: Given these findings, we will start the patient on beta-blockers 25 b.i.d. In addition, we will obtain an echocardiogram to evaluate her LV function. Byron Vizcaino MD
--- NOTE | 2019-02-02 22:30 | CARD ---
APPROVED REPORT Date of service: 02/02/2019 EKG Measurement Heart [id number] <Conclusion> Sinus tachycardia Prolonged QTc Otherwise normal ECG
[2019-02-03 07:18] VITALS: RESP 19
[2019-02-03] MEDS: Hydrocortisone 2.5% Rectal Cream(30 gm) PR SCH (09:52)
[2019-02-03 14:04] VITALS: BP 107/68; PULSE 101
--- NOTE | 2019-02-03 14:36 | PN ---
DATE: 02/03/2019 SUBJECTIVE: I saw her sitting out of bed to chair. She is doing a little bit better. She had less palpitations today. Cardiology had seen her and added some metoprolol, which I think is making a difference. She ate breakfast well. She is feeling better mentally. PHYSICAL EXAMINATION VITAL SIGNS: She has a 98.2 temperature. The pulse was as high as 139, is down to 92, her blood pressure is 106/72 and 19 respiratory rate. HEENT: Head is atraumatic and normocephalic. HEART: Regular rate, a little fast. LUNGS: Decreased breath sounds but clear. ABDOMEN: Soft. EXTREMITIES: No edema. Anusol, Ativan, Desyrel, Geodon, Lopressor, Maalox, milk of magnesia, Neurontin, Nicoderm patch, Seroquel, Tylenol, Vistaril, Wellbutrin. LABORATORY DATA: She has a 7.3 white count, 13.4 hemoglobin, 41.4 hematocrit with 327 platelets. Sodium 142, potassium 4.4, BUN 17, creatinine 1. GFR is less than 60. Sugar is 96, calcium 9.4. Total bilirubin is 0.5. AST is 26, ALT is 12, alkaline phosphatase 67, and troponin I is less than 0.01. Total protein is 7.4, cholesterol is 244, TSH is 0.94. PLAN: We will continue to watch her pulse. She also had a 2D echo which shows normal ventricular wall thickness. The systolic function is mildly to moderately impaired. Transmitral Doppler wavelength abdominal relaxation pattern. As per Psychiatry and Cardiology, continue to encourage her. Juan Del Valle DO MTDD
--- NOTE | 2019-02-03 22:45 | CARD ---
APPROVED REPORT Date of service: 02/03/2019 EKG Measurement Heart [id number] <Conclusion> Normal sinus rhythm Nonspecific T wave abnormality Prolonged QT Abnormal ECG
--- NOTE | 2019-02-04 10:26 | PCM.PYCHPN ---
Psychiatric Progress Note - Psychiatric Progress Note Patient seen today, length of contact: 30 minutes Problems Identified/Issues Discussed: I reviewed assessment and recent notes. Patient was interviewed at bedside. She is cooperative with questioning and remains well-oriented to location, month, year and circumstances. She reports "feeling all right" though still has bouts of anxiety/panic requiring prn medication. Stressed about DCP&P's involvement. She denies wishes or suicidal thoughts. Thought process is coherent. Patient still feels paranoid about others talking about her and saying negative things. She doesn't feel like this has improved since arriving. She denies any hallucinations and doesn't appear to be responding to internal stimuli. Staff notes indicate that she has been brighter and more visible on the unit, socializing with peers at times. Diagnostic Results: MDD, severe with psychosis r/o substance induced mood disorder r/o substance induced psychosis polysubstance abuse cocaine dependence Medication Change: No ( ) Medical Record Reviewed: Yes Mental Status Examination - Cognitive Function Orientation: Person, Place, Situation, Time Memory: Intact Attention: WNL Concentration: Poor Association: WNL Fund of Knowledge: WNL - Mood Mood: Depressed (all right), Anxious - Affect Affect: Flat - Speech Speech: Appropriate - Formal Thought Process Formal Thought Process: Paranoia (persists) - Suicidal Ideation Suicidal Ideation: No - Homicidal Ideation Homicidal Ideation: No Goal/Treatment Plan - Goal/Treatment Plan Need for Continued Stay: Remain at risks for inpatient hospitalization, Severe depression anxiety, Discharge may exacerbated symptoms, Severe functional impairment Progress Toward Problem(s) and Goals/Treatment Plan: * c/w current treatment and plan * No new lab results noted thus far * Vitals reviewed and noted below: Selected Entries 02/02/19 02/03/19 06:51 10:02 Temperature 98.2 F Pulse Rate 102 H 137 H Respiratory 20 Rate Blood Pressure 125/74 109/80 Estimated Date of D/C: 02/06/19
== END 2019-02-03 14:22 | disposition short-term general hospital (02) | DRG 430 ==
LOC: ED 12:44 → ERH 15:50 → PSYC 17:27
PROVIDERS: ADMIT Psychiatry & Neurology Psychiatry; ATTEND Psychiatry & Neurology Psychiatry
DX: F32.3 Major depressive disorder, single episode, severe with psychotic features (principal); F14.20 Cocaine dependence, uncomplicated; F12.90 Cannabis use, unspecified, uncomplicated; F17.210 Nicotine dependence, cigarettes, uncomplicated; E78.00 Pure hypercholesterolemia, unspecified; R00.2 Palpitations; Z91.5 Personal history of self-harm

== ENCOUNTER 2019-02-03 14:21 | Inpatient (IN) | payer MEDICAID ==
[2019-02-03 14:31] VITALS: BMI 25.0
[2019-02-03] MEDS ORDERED: Sodium Chloride 0.9% 1,000 ML IV STA (14:54)
--- NOTE | 2019-02-03 14:57 | ED PDOC ---
Arrival/HPI - General Chief Complaint: Dizziness/Lightheaded Time Seen by Provider: 02/03/19 14:23 Historian: Patient - History of Present Illness Narrative History of Present Illness (Text): 02/03/19 14:54 48 year old female, whose past medical history includes depression and substance abuse, presents to the emergency department from psych floor complaining of dizziness and nausea that began last night. Patient reports being on multiple new medications on the psych floor. Patient also reports chest discomfort earlier today, but denies any fever, chills, shortness of breath, vomiting, diarrhea, urinary symptoms, back pain, neck pain, headache, or any other complaints. Time/Duration: Other (last night) Symptom Onset: Gradual Symptom Course: Unchanged Activities at Onset: Light Context: Other (inpatient) Past Medical History - Provider Review Nursing Documentation Reviewed: Yes - Infectious Disease Hx of Infectious Diseases: None - Cardiac Hx Cardiac Disorders: No Hx Hypertension: No - Pulmonary Hx Respiratory Disorders: No Hx Tuberculosis: No - Neurological Hx Neurological Disorder: No HX Cerebrovascular Accident: No Hx Seizures: No - HEENT Hx HEENT Disorder: No - Renal Hx Renal Disorder: No - Endocrine/Metabolic Hx Endocrine Disorders: No - Hematological/Oncological Hx Blood Disorders: No Hx Cancer: No - Integumentary Hx Dermatological Disorder: No - Musculoskeletal/Rheumatological Hx Musculoskeletal Disorders: No - Gastrointestinal Hx Gastrointestinal Disorders: No - Genitourinary/Gynecological Hx Genitourinary Disorders: No Hx Sexually Transmitted Diseases: No - Psychiatric Hx Substance Use: No - Anesthesia Hx Anesthesia: No Family/Social History - Physician Review Nursing Documentation Reviewed: Yes Family/Social History: No Known Family HX Smoking Status: Light Smoker < 10 Cigarettes Daily Hx Alcohol Use: Yes (social) Hx Substance Use: No Substance used: heroine, cocaine, was on methadone Allergies/Home Meds Allergies/Adverse Reactions: Allergies No Known Allergies Allergy (Verified 01/30/19 13:04) Home Medications: Home Meds Medication Instructions Recorded Confirmed No Known Home Med 01/30/19 02/03/19 Review of Systems - Physician Review All systems were reviewed & negative as marked: Yes - Review of Systems Constitutional: absent: Fevers, Other (chills) Respiratory: absent: SOB Cardiovascular: Chest Pain Gastrointestinal: Nausea. absent: Diarrhea, Vomiting Genitourinary Female: absent: Dysuria, Frequency, Hematuria Musculoskeletal: absent: Back Pain, Neck Pain Neurological: Dizziness. absent: Headache Physical Exam - Physical Exam Narrative Physical Exam (Text): Gen: VS reviewed, alert, well developed, well nourished, nontoxic, mild distress. ENT: normal pharynx. Eye: EOMI, PERRL. Neck: no JVD, supple, no adenopathy. CV: regular rate, regular rhythm, no rubs, no murmur, no gallops, S1, S2, pulses equal and strong. Pulm: no distress, clear to auscultation, no wheeze, no rhonchi, breath sounds equal, no rales. Abd: soft, nontender, no guarding, no rebound, no rigidity, normal bowel sounds. Ext: no edema. Skin: good color, no rash, no cyanosis. Psych: responds appropriately to questions, normal affect. Neuro: oriented x 3, CN2-12 intact grossly, motor intact, sensation intact. Vital Signs Reviewed: Yes Blood Pressure: Normal Pulse: Tachycardic Respiratory Rate: Normal Medical Decision Making ED Course and Treatment: 02/03/19 14:54 Impression: 48 year old female sent down from psych floor presents complaining of dizziness that began last night associated with nausea and chest discomfort. Plan: -- Labs -- CXR -- IV Fluids -- Reassess and disposition Prior Visits: Notes and results from previous visits were reviewed. Progress Notes: 02/03/19 15:00 All of patient's impatient blood work were reviewed. 02/03/19 17:50 case d/w dr. quintero, accepts admit to tele. He states that he saw the patient earlier today for tachycardia. As per dr. quintero consult to dr. jha and dr. mcneil. - Lab Interpretations I have reviewed the lab results: Yes - RAD Interpretation Gold Miner: Radiologist - EKG Interpretation EKG Interpretation (Text): 02/03/19 14:48 sinus @ 100 bpm, nml qrs, nml axis, no acute sttw abn. Interpreted by ED Physician: Yes Type: 12 lead EKG - Scribe Statement The provider has reviewed the documentation as recorded by the Cristobal Rm Provider Scribe Attestation: All medical record entries made by the Scribe were at my direction and personally dictated by me. I have reviewed the chart and agree that the record accurately reflects my personal performance of the history, physical exam, medical decision making, and the department course for this patient. I have also personally directed, Shirley Rm Disposition/Present on Arrival - Present on Arrival Any Indicators Present on Arrival: No History of DVT/PE: No History of Uncontrolled Diabetes: No Urinary Catheter: No History Surgical Site Infection Following: None - Disposition Have Diagnosis and Disposition been Completed?: Yes Diagnosis: Tachycardia Disposition: HOSPITALIZED Disposition Time: 18:16 Patient Plan: Discharge Condition: STABLE
[2019-02-03 15:54] LABS: BASO # 0.06 K/mm3 (0.0-2.0); BASO % 0.9 % (0.0-3.0); EOS # 0.1 (0.0-0.7); EOS % 1.6 % (1.5-5.0); LYMPH # 3.3 (1.2-3.4); LYMPH % 47.2 % (22.0-35.0); MEAN CELL VOLUME 81.3 fl (80.0-105.0); MEAN CORPUSCULAR HEMOGLOBIN 25.9 pg (25.0-35.0); MEAN CORPUSCULAR HGB CONC 31.8 g/dl (31.0-37.0); MEAN PLATELET VOLUME 9.7 fl (7.0-11.0); MONO # 0.5 (0.1-0.6); MONO % 6.8 % (1.0-6.0); RBC 4.64 10^6/uL (3.5-6.1); RED CELL DISTRIBUTION WIDTH 15.8 % (11.5-14.5); WHITE BLOOD COUNT 6.9 10^3/uL (4.5-11.0)
[2019-02-03 16:04] LABS: INR 1.06; PARTIAL THROMBOPLASTIN TIME 31.8 Seconds (26.9-38.3); PROTHROMBIN TIME 11.8 SECONDS (9.4-12.5)
[2019-02-03 16:09] LABS: ALB/GLOB RATIO 1.3 (1.1-1.8); ALBUMIN 4.1 g/dL (3.0-4.8); ALT/SGPT 15 U/L (7-56); AST/SGOT 27 U/L (14-36); BLOOD UREA NITROGEN 16 mg/dL (7-21); CALCIUM 9.1 mg/dL (8.4-10.5); GFR NON-AFRICAN AMERICAN > 60
[2019-02-03 16:14] LABS: TROPONIN I < 0.01 ng/mL
--- NOTE | 2019-02-03 17:34 | RAD ---
Date of service: 02/03/2019 HISTORY: chest pain COMPARISON: 01/30/2019. FINDINGS: LUNGS: The lungs are well inflated and clear. PLEURA: No pleural effusions or pneumothorax. CARDIOVASCULAR: The heart is normal in size. No aortic atherosclerotic calcifications present. OSSEOUS STRUCTURES: Within normal limits for the patient's age. VISUALIZED UPPER ABDOMEN: Normal. OTHER FINDINGS: None. IMPRESSION: No active pulmonary disease.
--- NOTE | 2019-02-03 20:35 | CP.PCM.PCO ---
<Marshall Yoder - Last Filed: 02/03/19 20:33> Addendum Addendum: PGY1 House Doc Note Patient complaining of low back pain. Initially gave motrin however patient refused. She appears comfortable on exam. Will administer toradol 15mg IVP dose given hx substance abuse. Monitor at this time. <Anthony Gould - Last Filed: 02/04/19 19:26> Attending/Attestation - Attestation I have personally seen and examined this patient.: No I have fully participated in the care of the patient.: No I have reviewed all pertinent clinical information: No
--- NOTE | 2019-02-03 22:38 | CARD ---
APPROVED REPORT Date of service: 02/03/2019 EKG Measurement Heart [id number] <Conclusion> Sinus rhythm with short [place]. No delta wave seen Nonspecific T wave abnormality Prolonged QT CCR Abnormal ECG
[2019-02-03] MEDS: Sodium Chloride 0.45% 1,000 ML IV SCH (22:46)
[2019-02-03] MEDS ORDERED: Influenza Vaccine 60 mcg/0.5 mL SYR (4YR UP) IM ONE (23:14)
[2019-02-03] MEDS ORDERED: Pneumococcal 23-Valent Vaccine IM ONE (23:14)
--- NOTE | 2019-02-04 01:17 | HP ---
DATE OF EXAM: 02/03/2019 HISTORY OF PRESENT ILLNESS: She was in the Psychiatric Floor. I was seeing her as a consult and she had tachycardia, from 120s to 130s. I had called in Cardiology, we started her on medications and then Cardiology decided she needs to be on Telemetry, so we transferred her from Psychiatric Floor to the ER and now admitting her to telemetry. She has a past medical history of depression and substance abuse. I believe that was cocaine and marijuana, and she was very depressed with suicidal thoughts in the Psychiatric Floor. Now, she is in the ER with tachycardia and dizziness. PAST MEDICAL HISTORY: Depression, substance abuse, now dizziness with tachycardia, and palpitations. FAMILY HISTORY: No known family history. SOCIAL HISTORY: She still smokes cigarettes. She smokes. She drinks cocaine, heroin and methadone is her flavor of drugs. ALLERGIES: NO KNOWN DRUG ALLERGIES. MEDICATIONS: She was not taking any medications before she got to the hospital. REVIEW OF SYSTEMS: No fever or chills. No vision changes and no hearing changes. No sore throat. No neck pain. No shortness of breath or cough. She had chest pain, palpitations, nauseousness. No diarrhea or vomiting. No problems urinating. No back pain, neck pain. No headache, but she was dizzy. PHYSICAL EXAMINATION: VITAL SIGNS: She was 120, 130 in the psych unit, she is down to 101 pulse, 111/63 blood pressure, 16 respiratory rate, and 98% O2 sat on room air. GENERAL: She is alert, well-developed, well-nourished, nontoxic at this time, mild distress. HEENT: Head is atraumatic and normocephalic. Throat is moist. Extraocular muscles are intact. Pupils react to light and accommodation. NECK: Supple. No JVD. No adenopathy. HEART: Regular rate. Tachy. Normal S1 and S2. LUNGS: Decreased breath sounds. No wheezes or rhonchi. Poor inspiration. ABDOMEN: Soft and nontender. Positive bowel sounds. No guarding, no rebound and no CVA tenderness. EXTREMITIES: No edema. SKIN: Good color and good turgor. No apparent rashes or ulcers appreciated. NEUROLOGIC: She had normal affect. Responds appropriately questions. Cranial nerves II through XII grossly intact. Motor and sensation intact. DIAGNOSTIC DATA: Chest x-ray with no acute disease. White count 6.9, hemoglobin 12, hematocrit 37.7, and platelets 321. INR is 1.06. Sodium 139, potassium 4.1, BUN 60, creatinine 0.8, GFR greater than 60, sugar is 94, and calcium 9.1. Total bili is 0.4, AST is 27, ALT is 15, and alk phos is 60. Troponin I is less than 0.01. Total protein 7.3. CONSULTS: Neurology for the dizziness, Cardiology for the palpitations and tachycardia, and Psychiatry for depression, suicidal ideation, and substance abuse. IMPRESSION AND PLAN: She is here for dizziness, palpitations, tachycardia, depression and suicidal ideation and substance abuse. She is on her medications; Wellbutrin, Tylenol, Toradol, tramadol, IV fluids, Seroquel, Nicoderm, Neurontin, Motrin, metoprolol, Lipitor, Geodon, Desyrel, Cozaar, Ativan, and aspirin that is what she is on. Juan Del Valle DO
[2019-02-04 06:52] LABS: ALB/GLOB RATIO 1.3 (1.1-1.8); ALBUMIN 3.8 g/dL (3.0-4.8); ALT/SGPT 15 U/L (7-56); AST/SGOT 24 U/L (14-36); BLOOD UREA NITROGEN 17 mg/dL (7-21); CALCIUM 9.3 mg/dL (8.4-10.5); GFR NON-AFRICAN AMERICAN 60
[2019-02-04 07:02] LABS: HEMOGLOBIN 11.9 g/dL (12.0-16.0); MEAN CELL VOLUME 81.3 fl (80.0-105.0); MEAN CORPUSCULAR HEMOGLOBIN 26.2 pg (25.0-35.0); MEAN CORPUSCULAR HGB CONC 32.2 g/dl (31.0-37.0); MEAN PLATELET VOLUME 9.8 fl (7.0-11.0); RBC 4.55 10^6/uL (3.5-6.1); RED CELL DISTRIBUTION WIDTH 15.8 % (11.5-14.5); WHITE BLOOD COUNT 7.1 10^3/uL (4.5-11.0)
--- NOTE | 2019-02-04 13:54 | CON ---
DATE: 02/04/2019 NEUROLOGY CONSULTATION CHIEF COMPLAINT: Dizziness. HISTORY OF PRESENT ILLNESS: This is a 48-year-old woman with history of depression, substance abuse, was on psychiatric floor on multiple psychiatric medications. Had dizziness while walking in terms of lightheadedness. No spinning sensation of the room, was noxious and tachycardic palpitations, was brought down to telemetry. She is currently being monitored. Currently, she is eating her food, no acute distress. No focal neurological deficits seen on exam. She is no longer dizzy. PAST MEDICAL HISTORY: As above. SOCIAL HISTORY: No illicit drug use, smoking or EtOH abuse. Except for smoking cigarettes. She has history of cocaine, heroin, and methadone use and drinks occasionally. ALLERGIES: NO KNOWN DRUG ALLERGIES. MEDICATIONS: Reviewed by nurse's reconciliation sheet. REVIEW OF SYSTEMS: A 14-point review of systems is negative except as per HPI. PHYSICAL EXAMINATION VITAL SIGNS: Temperature afebrile. Pulse rate 90, blood pressure 122/80, respiratory rate of 18 and oxygen saturations 99% on room air. HEENT: Atraumatic and normocephalic. PERRLA. Extraocular muscles are intact. NECK: Supple. No JVD. No adenopathy noted. LUNGS: Clear to auscultation. No adventitious sounds. HEART: S1 and S2, normal rate and rhythm. No murmurs, rubs, or gallops. ABDOMEN: Soft, nontender, and nondistended. Bowel sounds are present. EXTREMITIES: No clubbing. No cyanosis. Peripheral pulses 2+ bilaterally. NEUROLOGIC: The patient is alert and oriented to person, place, month, and year. Speech is fluent without any errors. Cranial nerves II through XII are intact. Motor exam; moves all extremities equally. Toes are downgoing bilaterally. Sensory exam; light touch and pinprick, proprioception, and vibration are intact. DTRs are 2+ throughout and 1 in both the knees and ankles. Coordination; [id number] is intact. No dysmetria noted. Gait is deferred for now. LABORATORY DATA: Sodium is 142, potassium 4.3, chloride 106, carbon dioxide 31, BUN 70, creatinine 1.0 and random glucose of 102. IMPRESSION: Transient dizziness likely secondary to palpitations and transient tachycardia. RECOMMENDATIONS: 1. Adjust psychiatric meds by psychiatric team since she is on multiple psychiatric meds, which can cause tachycardia as well. 2. Monitor electrolytes and correct accordingly. 3. Cardiology followup regarding some palpitations. 4. Continue with Holter monitoring and continue current . Michael Dover MD
--- NOTE | 2019-02-04 14:16 | PN ---
DATE: 02/04/2019 SUBJECTIVE: She was sent over by Cardiology for the psych unit for her blood pressure, palpitations to the telemetry side of the hospital. She is comfortable in bed. There is adjustment of her medications. She is on IV fluids, aspirin, Ativan, Cozaar 12.5, it could be elevated as needed, trazodone, Geodon, Lipitor, Lopressor 25 twice a day, that could also be increased if needed, Motrin as needed, Neurontin, Nicoderm patch. She is trying to quit smoking, Seroquel, Toradol and she needs it for pain, Tylenol, Wellbutrin. She is also on the patch for smoking. She did not sleep well last night, I am wondering if Psychiatry can help us with some sleep aid medicine. PHYSICAL EXAMINATION: GENERAL: She is very pleasant, smiling, good spirits this morning. VITAL SIGNS: She has a 98 temperature; pulse has been as low as 61, it is currently 90; blood pressure is better at 122/82; 18 respiratory rate; 99% O2 sat on room air. HEENT: Head is atraumatic, normocephalic. HEART: Regular rate. LUNGS: Decreased breath sounds. ABDOMEN: Soft. EXTREMITIES: No edema. LABORATORY DATA: She has a 142 sodium, potassium 4.3, BUN 17, creatinine 1, GFR is 60, sugar is 102, calcium is 9.3, total bili is 0.5, AST is 24, ALT is 15, alk phos 54. Troponin I is less than 0.01. Total protein 6.7. INR is 1.06. White count 7.1, hemoglobin 11.9, hematocrit 37, platelets of 300. ASSESSMENT AND PLAN: Await for Cardio and Psychiatry to see her, now that she is out of the psychiatric unit. When I get the okay from them, we will either send her back to Psychiatry or let her leave on discharge as per Psychiatry; and Cardiology and also Neurology did look at her dizziness and them to come to the chart. We will continue aggressive treatment and care. Check her labs tomorrow. Get her out of bed to chair. Hopefully, she will eat well. Juan Del Valle DO [facility] # [id number] MTDD
--- NOTE | 2019-02-04 16:08 | CON ---
DATE OF CONSULTATION: 02/04/2019 REASON FOR CONSULTATION: Dizziness. HISTORY OF PRESENT ILLNESS: The patient is a 48-year-old female who has a history of depression, was recently admitted to psych [facility] on 01/30/2019, i.e. 5 days ago, with depression and suicidal ideation. While on the floor, the patient experienced palpitations and yesterday reported dizziness for which the patient was referred to the emergency room for further evaluation and was admitted to telemetry. During last admission, drug screen was positive for cocaine and cannabinoids. The patient denies any prior cardiac history and is unaware of any history of any thyroid condition. SOCIAL HISTORY: This patient is a smoker and EtOH abuser. She does abuse cocaine and cannabinoids. CURRENT MEDICATIONS: Aspirin 81 mg once a day, Cozaar 12.5 mg daily, Desyrel 100 mg h.s. daily, Lipitor 10 mg once a day, Lopressor 25 mg twice a day, nicotine patch, Neurontin 300 mg t.i.d., Wellbutrin 75 mg twice a day. REVIEW OF SYSTEMS: No nausea or vomiting. No fever or chills. No syncopal episode and no seizure activity. PHYSICAL EXAMINATION: GENERAL: The patient is a middle-aged female who does not appear to be in acute distress. VITAL SIGNS: Blood pressure 122/82, heart rate 90, temperature 98, respirations 20. HEENT: Head normocephalic. CHEST: Clear. HEART: S1 and S2 regular. ABDOMEN: Soft. EXTREMITIES: No edema. LABORATORY DATA: SMA-7 is within normal limits except for anion gap of 9. Hemoglobin and hematocrit 11.9 and 37.0. White count and platelet count are within normal limits. D-dimer is below 200 and that was done yesterday. Echocardiograph study revealed normal left ventricular wall thickness, mildly to moderately impaired left ventricular systolic function with regional wall motion abnormality noted, aneurysm of left atrial septum. Yesterday's EKG revealed sinus rhythm at rate of 100 with nonspecific T-wave abnormality. ASSESSMENT: 1. Sinus tachycardia and dizziness reported yesterday on the psych unit. 2. History of cocaine and cannabinoid abuse. 3. Rule out ischemic cardiomyopathy. The patient's left ventricular systolic function is mildly to moderately impaired. RECOMMENDATIONS: Continue current telemetry monitoring. Continue aspirin 81 mg once a day, Cozaar 12.5 mg daily, Lipitor 10 mg once a day, Lopressor 25 mg twice a day. Eleno Erwin MD [facility] # [id number]
--- NOTE | 2019-02-04 16:21 | CON ---
DATE: 02/04/2019 HISTORY OF PRESENT ILLNESS: The patient is a 48-year-old -Filipino female with a reported history of depression. No prior psychiatric admissions, one detox admission at [facility] about a year ago who admitted to psychiatric unit after she called 911 because of worsening depression, suicidal thoughts as planned to cut with razor as well as psychotic of paranoia. The patient also has a long history of opiate and stimulant use disorder and currently in methadone clinic where she detox. The patient was treated on the psychiatric unit with Seroquel 50 mg twice a day and Wellbutrin 75 mg twice a day as well as Neurontin three times a day and trazodone 100 mg p.r.n. for her symptoms and appeared to be improving. I met with her yesterday and today. The patient indicated that she was tolerating her medications and remain well oriented to location, month, year and circumstances. The patient also feels that her medications have been beneficial. Psychiatry consult, now the patient right now as she was transferred to the medical floor yesterday on 02/03/2019 due to episodes of tachycardia for 120s-130s and she is being monitored on telemetry. At this time, the patient is not suicidal. She is not experiencing hallucinations, her paranoia also appears to be improving and her relatedness and spontaneity also improving well. The patient would like to restart on psychiatric medications and she feels like it contributes her improvement. There has been no major behavioral issues and her insight and judgment are certainly improving. Vital signs were reviewed. They are within normal limits this morning. Labs are also reviewed. Relevant psychiatric medications include Wellbutrin 75 twice a day, Neurontin 300 three times a day, Ativan 2 mg every 6 p.r.n., Seroquel 50 mg a.m. and at bedtime and trazodone 50 mg at bedtime. IMPRESSION: Major depressive disorder severe with psychiatry. Speech is improving at this time, likely contribution substance-induced mood disorder, substance-induced psychiatric disorder, polysubstance abuse and cocaine dependant. RECOMMENDATIONS: At this time, we will continue her medications of Seroquel 50 mg twice daily, Wellbutrin 75 mg twice daily, Neurontin 300 mg three times daily and Ativan p.r.n., trazodone will be increased to 100 mg at night time as needed for insomnia as the patient reported issues at sleeping last night. Psychiatry will continued to followup. Monitor her progress and hopefully she was transferred to psychiatric unit once she is medically cleared. I suggest her medical treatment as she appears to have some confusion and questions regarding her current medical circumstances. Kim Akins MD
[2019-02-05] MEDS: Sodium Chloride 0.45% 1,000 ML IV SCH (00:25)
[2019-02-05 04:57] VITALS: O2SAT 98
[2019-02-05 09:36] LABS: HEMOGLOBIN 11.9 g/dL (12.0-16.0); MEAN CELL VOLUME 82.3 fl (80.0-105.0); MEAN CORPUSCULAR HGB CONC 31.6 g/dl (31.0-37.0); MEAN PLATELET VOLUME 9.7 fl (7.0-11.0); RBC 4.57 10^6/uL (3.5-6.1); RED CELL DISTRIBUTION WIDTH 15.8 % (11.5-14.5)
[2019-02-05 09:51] LABS: ALB/GLOB RATIO 1.3 (1.1-1.8); ALBUMIN 3.8 g/dL (3.0-4.8); ALT/SGPT 14 U/L (7-56); AST/SGOT 21 U/L (14-36); BLOOD UREA NITROGEN 16 mg/dL (7-21); CALCIUM 9.2 mg/dL (8.4-10.5); GFR NON-AFRICAN AMERICAN 60
--- NOTE | 2019-02-05 11:54 | PN ---
DATE: 02/05/2019 SUBJECTIVE: She is in her room in telemetry. She is comfortable. She was seen by Psychiatry who will take her back to the psych unit once she is medically cleared by Neurology and Cardiology. PHYSICAL EXAMINATION: GENERAL: Alert, comfortable. No chest pain or shortness of breath. No abdominal pain. Mentally, she is a little bit off still, needs more psych, I agree with Psychiatry. VITAL SIGNS: She has a 97.9 temperature, 80 pulse, 109/69 blood pressure, 20 respiratory rate, 90% O2 sat on room air. HEENT: Head is atraumatic, normocephalic. HEART: Regular rate. LUNGS: Clear to auscultation. ABDOMEN: Soft. EXTREMITIES: No edema. LABORATORY DATA: She has a 6 white count, 11.9 hemoglobin, 37.6 hematocrit with 307 platelets. 141 sodium, potassium 4.1, BUN 60, creatinine 1, GFR is greater than 60, sugar is 103, calcium is 9.2, total bili is 0.5, AST is 21, ALT is 14, alk phos 51, troponin I is less than 0.01, total protein 6.8. MEDICATIONS: She is currently on aspirin, Ativan, Cozaar, Desyrel, Geodon, Lipitor, Lopressor, Neurontin, Nicoderm, Seroquel, IV fluids, Toradol, Tylenol, and Wellbutrin. ASSESSMENT AND PLAN: When I get the okay from Cardiology, I will transfer her back to the psych unit for continued psychiatric care and medication adjustment. Juan Del Valle DO
[2019-02-05 18:03] VITALS: BP 102/72; RESP 21; TEMP 98.3
[2019-02-05 19:22] VITALS: PULSE 86
--- NOTE | 2019-02-05 19:22 | PN ---
DATE: 02/05/2019 SUBJECTIVE: The patient denies any chest pain, palpitation or dizziness. She is in sinus rhythm on the monitor. OBJECTIVE: VITAL SIGNS: Blood pressure 109/73, heart rate 86, temperature 98.2, respiration 20. HEENT: Normocephalic. CHEST: Clear. HEART: S1 and S2 regular. ABDOMEN: Soft. EXTREMITIES: No edema. LABORATORY DATA: Today's hemoglobin and hematocrit 11.9 and 37.6, white count and platelet count are within normal limits. Today's SMA-7 is within normal limits except for anion gap of 9. ASSESSMENT: 1. Palpitation and dizziness. 2. Rule out ischemic cardiomyopathy. 3. Status post cocaine and cannabinoid abuse. 4. History of depression. RECOMMENDATIONS: Continue current aspirin, Cozaar, Lipitor, Lopressor. I will start Plavix 75 mg once a day and further discuss case with Dr. Byron Vizcaino tomorrow. Eleno Erwin MD
--- NOTE | 2019-02-05 20:25 | CON ---
DATE: 02/05/2019 HISTORY OF PRESENT ILLNESS: The psychiatric provider is following up with the patient on the medical floor status post transfer here due to sinus tachycardia. I followed up with her psychiatrically yesterday and again today and she seems to be doing well. She is better. She is still depressed, however. Denies any suicidal thoughts. Denies hallucinations. Paranoia is still there up and down; however, the patient overall feels like she is improving. There have been no behavioral problems. The patient presents fairly coherently and her focus is fair and responses are relevant and consistent with repeated questioning. The patient is tolerating her medications well. She denies any side effects. She denies any new discomfort or pain. She indicates she slept well with the increase in trazodone to 100 mg last night. Her insight and judgment are improving. RELEVANT PSYCHIATRIC MEDICATIONS: Include Wellbutrin 75 mg b.i.d., Neurontin 300 mg t.i.d., Ativan 2 mg every 6 hours p.r.n., Seroquel 50 mg a.m. and at bedtime, trazodone 100 mg at bedtime. IMPRESSION: Major depressive disorder, severe with psychotic symptoms, improving. RECOMMENDATIONS: We will continue with current treatment and plan. Psychiatry will continue to follow up. The patient would like to be transferred back to the psychiatric unit once she is medically cleared. Kim Akins MD
--- NOTE | 2019-02-06 08:59 | PN ---
DATE: 02/03/[address] Byron Vizcaino. SUBJECTIVE: The patient complains of palpitation and anxiety. She denies retrosternal chest pain. PHYSICAL EXAMINATION: VITAL SIGNS: Blood pressure 109/80, heart rate 137, temperature 98.2, respiration 19. HEENT: Normocephalic. CHEST: Clear. HEART: S1 and S2. Regular. EXTREMITIES: No edema. LABORATORY DATA: Yesterday's hemoglobin, hematocrit, white count and platelet count are within normal limits. Yesterday's SMA-7 is within normal limit. TSH level is within normal limits. Lipase within normal limits. Urine drug screen is positive for cocaine and cannabinoids. Yesterday's EKG revealed sinus tachycardia at rate of 120. Echocardiogram study revealed normal left ventricular wall thickness. Mildly to moderately impaired left ventricular systolic function with regional wall motion abnormality. Aneurysmal atrial septum. Chest x-ray was unremarkable except for a vertical heart and lung consistent with COPD. ASSESSMENT: 1. Status post cocaine and cannabinoid abuse. 2. Sinus tachycardia. 3. Mild to moderate depressed ejection fraction. 4. Anxiety disorder. RECOMMENDATIONS: Continue current psych medications. Continue Lipitor 10 mg once a day, Lopressor 25 mg twice a day. Start Cozaar 12.5 mg once a day, aspirin 81 mg once a day. Repeat 12-lead EKG and obtain serum D-dimer. Eleno Erwin MD
--- NOTE | 2019-02-06 09:06 | CP.PCM.PCO ---
Physician Communication Note - Physician Communication Note Physician Communication Note: pt was discharged
== END 2019-02-05 22:00 | disposition left against medical advice (07) | DRG 138 ==
LOC: ED 14:21 → ERH 17:47 → 2RNO 19:02
PROVIDERS: ADMIT Family Medicine; ATTEND Family Medicine
DX: R00.0 Tachycardia, unspecified (principal); F32.3 Major depressive disorder, single episode, severe with psychotic features; F14.14 Cocaine abuse with cocaine-induced mood disorder; F10.10 Alcohol abuse, uncomplicated; F17.210 Nicotine dependence, cigarettes, uncomplicated; F41.9 Anxiety disorder, unspecified; R45.851 Suicidal ideations; Z79.899 Other long term (current) drug therapy